=== PATIENT | male | born 1995 | race Caucasian/White ===

== ENCOUNTER → 2016-08-06 | Outpatient (CLI) | payer OTHER ==
[2016-08-06 15:29] VITALS: BP 119/69
--- NOTE | 2016-08-06 15:29 | Urgent Care T Sheet Gen (E) ---
Intake General Temperature (Fahrenheit): 98.3 Pulse: 76 Blood Pressure Systolic: 119 Blood Pressure Diastolic: 69 Respirations: 18 SPO2: 99 Description of Symptoms patient presents with sore throat x 3 days. chills but no fever. no cough or congestion. throat hurts when eating or drinking. been taking ibuprofen. has Chloraseptic spray but hasn't been using it. reports back to [place] on Saturday. Respiratory Constitutional Symptoms: ChillsNo Fever, Malaise EENTM: No Nose Congestion, Throat pain Respiratory: No symptoms reported Cardiovascular: No symptoms reported All Other Systems Reviewed Remaining Systems: All other systems reviewed with negative findings Physical Exam Physical Exam General Appearance: WD/WN No apparent distress Eyes, Ears, Nose, Throat Ex: TMs normal Pharyngeal erythema Other (nose is clear) Neck Exam: Supple Lymphadenopathy (anterior cerivical ) Respiratory Exam: Lungs clear Normal breath sounds Cardiovascular Exam: Regular rate, rhythm Progress/Orders Lab Results Labs Results: Rapid Strep (negative) Departure Urgent Care Impression Impression: Primary Impression: Viral pharyngitis Departure Disposition: HOME OR SELF-CARE Condition: Stable Referrals: COLE TSE MD (PCP) Additional Instructions: Rapid strep was negative. I offered to sent for culture however he declined. Too early to check for mono. Patient states he reports to [place] on Saturday. If no better by then, [facility] Rest. Fluids. Continue with ibuprofen. Also suggested using Chloraseptic spray as needed Patient understands DC instructions. All questions were answered. End of report . NIKKIE BO Aug 06, 2016 15:29
== END ==
LOC: MHUC 14:29
PROVIDERS: ATTEND Physician Assistant
DX: J02.8 Acute pharyngitis due to other specified organisms (principal)
CPT/HCPCS: 87880; 99213